=== PATIENT | female | born 1990 | race Hispanic/Latino ===

== ENCOUNTER 2017-04-01 06:46 | Emergency (ER) | payer OTHER ==
[2017-04-01 07:23] VITALS: BP 126/78; PULSE 121; RESP 14; TEMP 99.9; O2SAT 99
[2017-04-01] MEDS ORDERED: ceFAZolin 1 GM in Sodium Chloride 0.9% 100 ML IVPB ONE (08:22)
--- NOTE | 2017-04-01 09:11 | ED PDOC ---
HPI: General Adult Time Seen by Provider: 04/01/17 08:00 Chief Complaint (Nursing): Breast Problem Chief Complaint (Provider): Breast Problem History Per: Patient History/Exam Limitations: no limitations Onset/Duration Of Symptoms: Days Current Symptoms Are (Timing): Still Present Additional Complaint(s): Reina is a 26 year old female who presents to the emergency department with left breast pain. Patient states she is currently for 10 months, and admits to breast feeding before reports she had mastitis before. Reports fever, but no vomiting. Patient states left breast pain started with chills at 02:00. Patient requesting for pain medication. PMD: Provider TBD Past Medical History Reviewed: Historical Data, Nursing Documentation, Vital Signs Vital Signs: Last Vital Signs Temp 99.9 F H 04/01/17 07:20 Pulse 121 H 04/01/17 07:20 Resp 14 04/01/17 07:20 BP 126/78 04/01/17 07:20 Pulse Ox 99 04/01/17 11:20 - Medical History Other PMH: Mastitis - Surgical History Surgical History: No Surg Hx - Family History Family History: States: Unknown Family Hx - Social History Current smoker - smoking cessation education provided: No Alcohol: None Drugs: Denies - Home Medications Home Medications: Ambulatory Orders Medication Instructions Recorded Cephalexin [Keflex] 500 mg PO QID #28 capsule 04/01/17 - Allergies Allergies/Adverse Reactions: Allergies Allergy/AdvReac Type Severity Reaction Status Date / Time No Known Allergies Allergy Verified 04/01/17 07:27 Physical Exam - Reviewed Nursing Documentation Reviewed: Yes Vital Signs Reviewed: Yes - Physical Exam Appears: Positive for: Non-toxic Head Exam: Positive for: NORMAL INSPECTION Skin: Negative for: Normal Color (See comments) Eye Exam: Positive for: Normal appearance Respiratory: Positive for: Normal Breath Sounds Neurologic/Psych: Positive for: Alert, Oriented (x 3) Comments: Left Breast: (+): 12 o clock left breast erythema, slight warmth (-): tenderness, abscess - Laboratory Results Result Diagrams: 04/01/17 08:51 04/01/17 08:51 - ECG O2 Sat by Pulse Oximetry: 99 (RA) Pulse Ox Interpretation: Normal Medical Decision Making Medical Decision Making: Time: 08:18 Impression: 26 year old female complaining of left-sided breast pain c/w early mastitis Plan: - CMP - CBC - Ancef 1 gm Sodium Chloride 0.9% 100 ml IVPB - Toradol 30 mg IV - Blood Culture Time: 11:10 Patient feels better. Labs reviewed. Patient will be discharged with Keflex. Upon provider evaluation patient is medically stable, and requires no further treatment in the ED at this time. Patient will be discharged with Rx for Keflex. Counseling was provided and all questions were answered regarding diagnosis and need for follow up with PCP within 2 days for solution for mastitis There is agreement to discharge plan. Return if symptoms persist or worsen. Scribe Attestation: Documented by Darin Ross, acting as a scribe for Mihaela Barreto MD Provider Scribe Attestation: All medical record entries made by the Scribe were at my direction and personally dictated by me. I have reviewed the chart and agree that the record accurately reflects my personal performance of the history, physical exam, medical decision making, and the department course for this patient. I have also personally directed, reviewed, and agree with the discharge instructions and disposition. Disposition - Clinical Impression Clinical Impression: Mastitis - Patient ED Disposition Is Patient to be Admitted: No - Disposition Disposition: Routine/Home Disposition Time: 10:30 Condition: IMPROVED Additional Instructions: follow up with your primary doctor in 1-2 days to ensure that infection is clearing return to the ED with any worsening or concerning symptoms Prescriptions: Cephalexin [Keflex] 500 mg PO QID #28 capsule Instructions: Mastitis (ED) Forms: [employer] ([place])
[2017-04-01 09:12] LABS: BASO % 0.3 % (0.0-2.0); EOS % 0.3 % (0.0-4.0); HEMATOCRIT 39.1 % (34.0-47.0); LYMPH # 0.9 K/uL (1.0-4.3); LYMPH % 7.4 % (20.0-40.0); MEAN CELL VOLUME 86.5 fl (81.0-99.0); MEAN CORPUSCULAR HEMOGLOBIN 28.9 pg (27.0-31.0); MEAN CORPUSCULAR HGB CONC 33.5 g/dL (33.0-37.0); MEAN PLATELET VOLUME 7.4 fl (7.2-11.7); MONO # 0.5 K/uL (0.0-0.8); MONO % 4.4 % (0.0-10.0); NEUT # 10.5 K/uL (1.8-7.0); NEUT % 87.6 % (50.0-75.0); NRBC % 0.1 % (0.0-0.0); PLATELET COUNT 245 K/uL (130-400); RED CELL DISTRIBUTION WIDTH 13.2 % (11.5-14.5)
[2017-04-01 09:21] LABS: ALKALINE PHOSPHATASE 110 U/L (38-126); ALT/SGPT 24 U/L (9-52); AST/SGOT 21 U/L (14-36); BILIRUBIN,TOTAL 0.5 mg/dl (0.2-1.3); BLOOD UREA NITROGEN 14 mg/dl (7-17); CALCIUM 9.1 mg/dL (8.4-10.2); CARBON DIOXIDE 23 mmol/L (22-30); CHLORIDE 107 mmol/L (98-107); GFR AFRICAN-AMERICAN > 60; GLUCOSE,RANDOM 94 mg/dL (65-105); POTASSIUM 4.1 MMOL/L (3.6-5.0); SODIUM 142 mmol/l (132-148); TOTAL PROTEIN 8.3 G/DL (6.3-8.2)
[2017-04-01 09:33] LABS: ALB/GLOB RATIO 1.3 (1.0-2.1)
[2017-04-01] MEDS: ceFAZolin IV 1 gm in Dextrose 1 GM/50 ML BAG IVPB ONE (09:37)
[2017-04-01 10:04] LABS: NEUTROPHIL 85 % (42-75); REACTIVE LYMPHOCYTES 1 % (0-0); TOTAL CELLS COUNTED 100
== END 2017-04-01 11:32 | disposition home or self-care (01) ==
LOC: H.ER 06:46
DX: N64.4 Mastodynia (principal)
CPT/HCPCS: 80053; 85025; 87040; 96365; 99283; J0690; J1885